=== PATIENT | female | born 1975 | race African-American/Black ===

== ENCOUNTER 2018-04-06 21:42 | Emergency (ER) | payer MEDICAID ==
[~2018-04-06] VITALS: Ht 160 cm; Wt 76.2 kg
[~2018-04-06 21:42] MED LIST: ALBUAER3 IN; AZITTAB11 PO; HYDR12.524; LISI-646; PRED-188 PO; PROM25TA5 PO; SPACMIS15 XX; TRAM50TA2
[2018-04-06 22:44] LABS: Alanine Aminotransferase 31 U/L (13-56); Albumin 1.4 g/dL (3.4-5.0); Anion Gap 6 (5-15); Aspartate Aminotransferase 48 U/L (15-37); BUN/Creatinine Ratio 24.3; Blood Urea Nitrogen 27 mg/dL (7-18); Calcium 7.1 mg/dL (8.5-10.1); Carbon Dioxide 26 mmol/L (21-32); Chloride 100 mmol/L (98-107); GFR African American 70 mL/min; GFR Non-African American 58 mL/min; Glucose 102 mg/dL (74-106); Magnesium 1.8 mg/dL (1.6-2.6); Potassium 4.4 mmol/L (3.5-5.1); Sodium 132 mmol/L (136-145)
[2018-04-06 22:49] LABS: Alkaline Phosphatase 215 U/L (45-117); Bilirubin, Total 0.4 mg/dL (0.2-1.0)
[2018-04-06 23:02] LABS: Hematocrit 29.6 % (36.0-46.0); Hemoglobin 9.6 g/dL (12.2-16.2); Mean Corpuscular Hemoglobin 30.6 pg (28.0-32.0); Mean Corpuscular Hgb Conc. 32.6 g/dL (32.0-36.0); Platelet Count (auto) 260 10^3/uL (140-450); Red Blood Cells 3.15 10^6/uL (4.0-5.20); White Blood Cell 8.5 10^3/uL (4.4-10.8)
[2018-04-06 23:05] LABS: Red Cell Distribution Width 20.2 % (11.8-14.3)
[2018-04-06 23:06] LABS: Basophils % (manual) 0 (0.0-2.0); Blast Cells 0; Eosinophils % (manual) 0 (0-7); Myelocytes % 0; Promyelocytes % 0; Reactive Lymphocytes 0
[2018-04-06 23:18] LABS: Band Neutrophils % (manual) 2; Lymphocytes % (manual) 9 (10.0-50.0); Monocytes % (manual) 13 (0-12)
[2018-04-06 23:19] LABS: Metamyelocytes % 1
[2018-04-07] MEDS ORDERED: SODIUM CHLORIDE 0.9% 1,000 ML IV ONE (00:45)
[2018-04-07] MEDS ORDERED: MORPHINE SULFATE 4 MG/ML SYR/VIAL IV ONE (00:45)
[2018-04-07] MEDS ORDERED: ONDANSETRON HCL 4 MG/2 ML VIAL IV ONE (00:45)
[2018-04-07 03:36] VITALS: BP 101/64
== END 2018-04-07 05:30 | disposition home or self-care (01) ==
LOC: EDBD 21:42 → ER 21:49
DX: M54.9 Dorsalgia, unspecified (principal); J44.9 Chronic obstructive pulmonary disease, unspecified; I10 Essential (primary) hypertension; Z21 Asymptomatic human immunodeficiency virus [HIV] infection status
CPT/HCPCS: 36415; 71045; 74176; 80053; 83735; 84484; 85007; 85027; 87040; 93005; 96374; 96375; J2405